=== PATIENT | female | born 1960 | race Hispanic/Latino ===

== ENCOUNTER 2023-12-08 15:49 | Outpatient (RCR) | payer BC | END 2023-12-18 | LOC: PT 15:49 | PROVIDERS: ATTEND Student in an Organized Health Care Education/Training Program | DX: M79.672 Pain in left foot (principal); M79.671 Pain in right foot ==

== ENCOUNTER 2023-12-20 11:44 | Outpatient (RCR) | payer BC | END 2024-01-18 | LOC: PT 11:44 | PROVIDERS: ATTEND Student in an Organized Health Care Education/Training Program | DX: M79.672 Pain in left foot (principal); M79.671 Pain in right foot ==

== ENCOUNTER 2024-02-23 15:21 | Emergency (ER) | payer BC, OTHER ==
[~2024-02-23] VITALS: Ht 160 cm; Wt 83.6 kg
[2024-02-23] MEDS ORDERED: OMEPRAZOLE40 MG PO (15:50)
[2024-02-23] MEDS ORDERED: DICYCLOMINE HCL20 MG PO (15:50)
[2024-02-23] MEDS ORDERED: LISINOPRIL5 MG PO (15:50)
[2024-02-23] MEDS ORDERED: MYLANTA COAT-C355 ML (15:50)
[2024-02-23] MEDS ORDERED: XANAX0.5 MG PO (15:50)
[2024-02-23] MEDS ORDERED: PEPTO-BISM262 MG/15 PO (15:50)
[2024-02-23] MEDS ORDERED: TUMS ULTRA400 MG PO (15:50)
[2024-02-23] MEDS: SODIUM CHLORIDE 0.9% 1000ML 1,000 ML IV STA (17:34)
[2024-02-23] MEDS: ONDANSETRON HCL INJ 2MG/ML 2ML 2 MG/ML VIAL IV STA (17:35)
[2024-02-23] MEDS: KETOROLAC TROMETHAMINE 30 MG/ML VIAL IV STA (17:35)
[2024-02-23] MEDS ORDERED: DICYCLOMINE HCL10 MG PO (18:21)
[2024-02-23] MEDS ORDERED: ONDANSETRON ODT4 MG PO (18:22)
[2024-02-23 18:35] VITALS: PULSE 90; RESP 16; TEMP 98.4; O2SAT 100
== END 2024-02-23 18:35 | disposition home or self-care (01) ==
LOC: FSED 15:47
DX: R10.13 Epigastric pain (principal); K57.90 Diverticulosis of intestine, part unspecified, without perforation or abscess without bleeding; R11.0 Nausea; K21.9 Gastro-esophageal reflux disease without esophagitis; I10 Essential (primary) hypertension; F41.9 Anxiety disorder, unspecified
CPT/HCPCS: 74176; 80048; 80076; 81003; 85025; 96374; 96375; 99284; J1885; J2405; J7030

== ENCOUNTER → 2024-03-30 | Day surgery (SDC) | payer MEDICARE, OTHER ==
[2024-03-27 15:06] LABS: BASOPHILS % 0.6 % (0.0-1.0); EOSINOPHILS # (AUTO) 0.2 (0.0-0.4); EOSINOPHILS % 2.8 % (0.0-6.0); HEMATOCRIT 45.2 % (34.2-44.1); HEMOGLOBIN 14.7 g/dL (12.0-16.0); LYMPHOCYTES # (AUTO) 3.3 (1.0-3.2); LYMPHOCYTES % 48.6 % (18.0-39.1); MEAN CORPUSCULAR HEMOGLOBIN 31.7 pg (28-32); MEAN CORPUSCULAR HGB CONC 32.5 g/dL (31-35); MEAN CORPUSCULAR VOLUME 97.4 fL (81-99); MONOCYTES # (AUTO) 0.6 (0.2-0.8); MONOCYTES % 9.3 % (4.4-11.3); NEUTROPHILS # (AUTO) 2.6 (2.1-6.9); NEUTROPHILS % 38.6 % (38.7-80.0); PLATELET COUNT 227 x10e3/uL (140-360); RED BLOOD COUNT 4.64 x10e6/uL (3.6-5.1); RED CELL DISTRIBUTION WIDTH 12.4 % (11.7-14.4); WHITE BLOOD COUNT 6.69 x10e3/uL (4.8-10.8)
[~2024-03-30] MED LIST: DEXMEDETOMIDINE HCL 200 MCG/2 ML VIAL ONE; DICYCLOMINE HCL10 MG PO; DICYCLOMINE HCL20 MG PO; FENTANYL CITRATE/PF 100MCG/2 ML INJ ONE; LIDOCAINE HCL 2% LOCAL INJ 5 ML SDV VIAL INJ ONE; LISINOPRIL5 MG PO; MYLANTA COAT-C355 ML; OMEPRAZOLE40 MG PO; ONDANSETRON ODT4 MG PO; PEPTO-BISM262 MG/15 PO; PROPOFOL IV EMULSION 10 MG/ML 50 ML VIAL IV ONE; TUMS ULTRA400 MG PO; XANAX0.5 MG PO
[2024-03-30] MEDS: LACTATED RINGER'S 1,000 ML ONE (09:59)
[2024-03-30 12:45] VITALS: BP 132/83; PULSE 73; RESP 16; O2SAT 95
== END | disposition home or self-care (01) ==
LOC: OR 05:00
PROVIDERS: ATTEND Internal Medicine Gastroenterology
DX: K29.70 Gastritis, unspecified, without bleeding (principal); Z86.0100 Personal history of colon polyps, unspecified; K22.10 Ulcer of esophagus without bleeding; K21.9 Gastro-esophageal reflux disease without esophagitis; K57.30 Diverticulosis of large intestine without perforation or abscess without bleeding; R19.7 Diarrhea, unspecified; K64.8 Other hemorrhoids; I10 Essential (primary) hypertension; B19.20 Unspecified viral hepatitis C without hepatic coma; G89.29 Other chronic pain; M19.90 Unspecified osteoarthritis, unspecified site; F41.9 Anxiety disorder, unspecified; Z88.0 Allergy status to penicillin; Z88.1 Allergy status to other antibiotic agents; Z91.041 Radiographic dye allergy status; Z01.810 Encounter for preprocedural cardiovascular examination; Z01.812 Encounter for preprocedural laboratory examination; Z79.899 Other long term (current) drug therapy; Z86.718 Personal history of other venous thrombosis and embolism
CPT/HCPCS: 36415; 43239; 45378; 85025; 93005; J2003; J2470; J2704; J3010; J7121